=== PATIENT | female | born 1990 ===

== ENCOUNTER 2023-01-28 04:02 | Inpatient (IN) | payer OTHER ==
[~2023-01-28] VITALS: Ht 177.8 cm; Wt 90.7 kg
[~2023-01-28 04:02] MED LIST: METHIMAZOLE10 MG PO; ORAPRED ODT10 MG PO; PREDNISONE10 M2 PO; PROPRANOLOL HCL10 MG PO
== END 2023-01-29 13:48 | disposition home or self-care (01) | DRG 627 ==
LOC: CIR.AMB 04:02 → SURH 11:16 → O/R 11:16 → SURH 11:27
PROVIDERS: ADMIT Otolaryngology; ATTEND Otolaryngology
PROC: 0GTK0ZZ Resection of Thyroid Gland, Open Approach (ICD-10-PCS; principal; 2023-01-28 07:00)
DX: E05.00 Thyrotoxicosis with diffuse goiter without thyrotoxic crisis or storm (principal); Z20.822 Contact with and (suspected) exposure to COVID-19